=== PATIENT | male | born 1955 | race Caucasian/White ===

== ENCOUNTER → 2020-06-11 12:28 | Outpatient (CLI) | payer MEDICARE, SELFPAY ==
[2020-06-11 13:10] LABS: Cholesterol 211 mg/dL (200); High Density Lipoprotein 70 mg/dL; Triglycerides 81 mg/dL; Very Low Density Lipoprotein 16 mg/dL (5-40)
[2020-06-11 13:11] LABS: Vitamin D,25 Hydroxy 38.8 ng/mL
[2020-06-11 13:15] LABS: Hemoglobin A1c 5.4 % (3.8-5.6)
== END ==
PROVIDERS: PCP Family Medicine; Referring Provider Family Medicine; Visit Provider Family Medicine
DX: E55.9 Vitamin D deficiency, unspecified (principal); E78.2 Mixed hyperlipidemia; N28.9 Disorder of kidney and ureter, unspecified; R73.9 Hyperglycemia, unspecified
CPT/HCPCS: 80061; 82306; 83036

== ENCOUNTER 2023-08-02 10:08 | Emergency (ER) | payer MEDICARE, OTHER, SELFPAY ==
[2023-08-02 10:09] VITALS: BP 113/61; PULSE 51; RESP 16; TEMP 36.4; O2SAT 91; BMI 24.8
--- NOTE | 2023-08-02 11:05 | EDS_ITS ---
HPI HPI - Fall History of Present Illness Chief Complaint: Fall Informant: patient Occured/Mechanism Occurred: Today Fall from Height (ft): 5-6 Pain/Injury Location: Left lower leg Quality of Pain: Aching Worsened by: Nothing Relieved by: Nothing Associated Symptoms Associated Symptoms: Negative for Parasthesias, Weakness, Loss of function, Inability to ambulate or Loss of consciousness Narrative Narrative: Patient presents after a fall that occurred today. Patient states he was on a ladder when it slipped. Patient states he fell approximately 5-6 feet. Patient states he put his hands out to catch himself. Patient denies any head injury or loss of consciousness. Patient admits to laceration to his left lower leg. Patient denies any paresthesias or weakness. Patient describes the pain as aching. Patient states it is localized to the left lower leg. Patient states his last tetanus was approximately 5 years ago. Patient denies any other injuries. Tetanus Immunization: <5 years PFSH [facility] Medical History High cholesterol Hypertension Home Medications ?Medication ?Instructions ?Recorded ?Last Taken ?Type amlodipine 10 mg tablet 10 mg PO DAILY 08/02/23 Unknown History cephalexin 500 mg capsule 500 mg PO Q6 #40 CAPSULES 08/02/23 Unknown Rx diclofenac sodium 1 % topical gel 2 ea topical 4X/DAY 08/02/23 Unknown History (Arthritis Pain (diclofenac)) lisinopril 40 mg tablet 20 mg PO DAILY 08/02/23 Unknown History pravastatin 20 mg tablet 20 mg PO QHS 08/02/23 Unknown History trazodone 50 mg tablet 50 - 100 mg PO QHS PRN PRN insomnia 08/02/23 Unknown History Allergy/AdvReac Type Severity Reaction Status Date / Time No Known Allergies Allergy Verified 08/02/23 10:16 Social History Smoking Status: Never smoker ROS ROS ED Constitutional Constitutional ED: Denies chills or fever(s) Eyes Eyes: Denies blurry vision or change in vision ENT ENT ED: Denies rhinorrhea or sore throat Cardiovascular Cardiovascular: Denies chest pain or palpitations Respiratory/Chest Respiratory/Chest: Denies cough or dyspnea Gastrointestinal Gastrointestinal: Denies nausea or vomiting Genitourinary Genitourinary ED: Denies dysuria or hematuria Musculoskeletal Musculoskeletal: Denies back pain or neck pain Integumentary Denies abscess or rash Neurologic Neurologic: Denies headache(s) or weakness Allergic/Immunologic Allergic/Immunologic ED: Denies mouth swelling or urticaria EXAM Physical Exam Const Vital Signs: 08/02/23 10:09 08/02/23 10:21 08/02/23 12:20 Temperature 97.6 F L Temperature Source Oral Pulse Rate 51 L 62 Respiratory Rate 16 16 Respiratory Effort Normal Non-Labored Respiratory Depth Normal Respiratory Pattern Normal Blood Pressure 113/61 157/90 H Blood Pressure Mean 78 112 Pulse Ox 91 96 Oxygen Delivery Method Non-Rebreather Room Air Room Air 08/02/23 14:00 Temperature Temperature Source Pulse Rate 62 Respiratory Rate 19 H Respiratory Effort Respiratory Depth Respiratory Pattern Blood Pressure 151/82 H Blood Pressure Mean 105 Pulse Ox 94 Oxygen Delivery Method Room Air Positive well nourished and well developed General Appearance ED: well developed and NAD HEENT Reports normocephalic HEENT Narrative: There is a very superficial abrasion over the forehead just to the right of midline. There is no bleeding noted. There is no bony crepitance or step-off noted. Eyes PERRL and EOMs intact bilaterally Neck full ROM and supple Extremity Extremity Narrative: There is a 7.5 cm full-thickness linear laceration over the anterior aspect of the left lower leg. There is no active bleeding noted. There are no foreign bodies noted. Strength is 5/5 bilaterally in lower extremities. There are no sensory deficits noted. Pedal pulses are equal bilaterally. Neuro oriented x3, CN's II-XII intact bilaterally, moves all extremities, no focal motor deficits and no sensory deficits noted Adela Coma Scale: document GCS findings Spontaneous Obeys Commands Oriented 15 Sensorium / Orientation: alert Motor Exam: strength 5/5 throughout Psych mental status grossly normal MDM MDM MDM Narrative Medical decision making narrative: The wound was cleaned and irrigated with copious amounts of normal saline. The wound was anesthetized with 1% plain lidocaine locally. The wound was closed with 7 simple interrupted #4-0 Vicryl subcutaneous sutures and 6 horizontal mattress #4-0 Ethilon sutures under sterile technique. Patient tolerated the procedure well. Bacitracin dressing was applied. Patient was instructed to keep the wound clean and dry. Patient was instructed to follow-up with his primary care physician in 7 days for wound recheck and suture removal. Patient and family understood and were agreeable with the plan. All questions were answered. Procedures Lacerations Left lower leg: Length: 7.5 cm Depth: Sub Q Shape: Linear Prep: Sterile Conditions and Chlorhexadine Laceration repair: Irrigated, Lidocaine, Local, Skin sutures (Six 4-0 Ethilon horizontal mattress), Subcutaneous sutures (7 simple interrupted #4-0 Vicryl) and Wound explored Irrigated (ml): 100 Number of Sutures/[place]: 13 Suture Information: Vicryl, Ethilon, Horizontal, Mattress and 4-0 Discharge Plan Triage Chief Complaint: Fall ED Provider: Elia Deshpande Dx/Rx/DC Orders Clinical Impression: Laceration of left leg, Fall Instructions: ED Laceration, All Closures, ED Laceration Extremity Prescriptions: New cephalexin 500 mg capsule 500 mg PO Q6 Qty: 40 0RF No Action amlodipine 10 mg tablet 10 mg PO DAILY lisinopril 40 mg tablet 20 mg PO DAILY trazodone 50 mg tablet 50 - 100 mg PO QHS PRN PRN (Reason: insomnia) pravastatin 20 mg tablet 20 mg PO QHS diclofenac sodium [Arthritis Pain (diclofenac)] 1 % gel 2 ea topical 4X/DAY Primary Care Provider: Navin Vega Referrals: Navin Vega MD [Primary Care Provider] - 7 Days for suture removal Print Language: Jordanian Disposition Disposition: Home, Self Care
[2023-08-02 12:20] VITALS: BP 157/90; PULSE 62; RESP 16; O2SAT 96
[2023-08-02 14:00] VITALS: BP 151/82; PULSE 62; RESP 19; O2SAT 94
[2023-08-02] MEDS: Lidocaine 1% (20 ml mdv) 20 ML Vial INFILT (15:10)
[2023-08-02 16:00] VITALS: BP 152/84; PULSE 67; RESP 18; TEMP 37; O2SAT 100
[2023-08-02] MEDS: Cephalexin 500 MG Capsule PO (16:31)
== END 2023-08-02 16:34 | disposition home or self-care (01) ==
PROVIDERS: Emergency Provider Emergency Medicine; PCP Family Medicine; Visit Provider Emergency Medicine
DX: S81.812A Laceration without foreign body, left lower leg, initial encounter (principal); W11.XXXA Fall on and from ladder, initial encounter; E78.00 Pure hypercholesterolemia, unspecified; I10 Essential (primary) hypertension; Z79.899 Other long term (current) drug therapy
CPT/HCPCS: 12032; 99284